=== PATIENT | male | born 2000 | race African-American/Black ===

== ENCOUNTER 2019-04-01 02:25 | Emergency (ER) | payer OTHER ==
[~2019-04-01] VITALS: Ht 180.3 cm; Wt 85.5 kg
[2019-04-01 03:29] LABS: INFLUENZA A AMPLIFICATION NEGATIVE (NEGATIVE); INFLUENZA B AMPLIFICATION NEGATIVE (NEGATIVE)
[2019-04-01] MEDS ORDERED: NS 1,000 ML IV ONE (06:00)
[2019-04-01] MEDS ORDERED: ONDANSETRON 4MG/2ML VIAL (J2405) IV ONE (06:15)
[2019-04-01] MEDS ORDERED: KETOROLAC 30 MG/ML VIAL (J1885) IV ONE (06:15)
[2019-04-01 06:30] LABS: BASO % 0.1 % (0.0-1.0); HEMATOCRIT 46.2 % (42.0-52.0); HEMOGLOBIN 15.2 g/dl (13.5-17.5); LYMPH % 2.5 % (24.0-44.0); MEAN CORPUSCULAR HEMOGLOBIN 26.2 pg (27.0-33.0); MEAN CORPUSCULAR HGB CONC 32.9 g/dl (32.0-36.5); MEAN CORPUSCULAR VOLUME 79.5 fl (80.0-96.0); MONO # 0.5 10^3/uL (0.0-0.8); MONO % 6.9 % (0.0-5.0); NEUTROPHILS % 90.4 % (36.0-66.0); PLATELET COUNT, AUTOMATED 175 10^3/uL (150-450); RED BLOOD COUNT 5.81 10^6/uL (4.30-6.10); WHITE BLOOD COUNT 7.7 10^3/uL (4.0-10.0)
[2019-04-01 06:59] LABS: LYMPH # 0.2 10^3/uL (1.5-5.0)
[2019-04-01 07:00] LABS: ALBUMIN 4.5 GM/DL (3.2-5.2); BILIRUBIN,DIRECT 0.3 MG/DL (0.0-0.2); BILIRUBIN,TOTAL 1.3 MG/DL (0.2-1.0); TOTAL PROTEIN 7.8 GM/DL (6.4-8.2)
[2019-04-01 09:11] VITALS: BP 108/69
== END 2019-04-01 09:12 | disposition home or self-care (01) ==
LOC: M ED 02:25
DX: R11.10 Vomiting, unspecified (principal); R05 Cough; F17.218 Nicotine dependence, cigarettes, with other nicotine-induced disorders
CPT/HCPCS: 80047; 80076; 81001; 83690; 85025; 87502; 96374; 96375; 99284; J1885; J2405

== ENCOUNTER 2019-04-30 13:50 | Emergency (ER) | payer OTHER ==
[~2019-04-30] VITALS: Ht 180.3 cm; Wt 86.4 kg
[2019-04-30] MEDS ORDERED: KETOROLAC TROMETHAMINE 10 MG TAB PO ONE (14:30)
[2019-04-30] MEDS ORDERED: CYCLOBENZAPRINE 5MG TABLET PO ONE (14:30)
--- NOTE | 2019-04-30 15:11 | REP ---
Right shoulder three views : There is no fracture or dislocation. Mineralization and joint spaces are normal. There are no calcifications or foreign bodies. Impression: Negative right shoulder . Electronically Signed by Fermin Hoang MD 04/30/2019 03:02 P
--- NOTE | 2019-04-30 15:11 | REP ---
Thoracic spine three views: Vertebral body heights, interspacing alignment are normal. Mineralization is normal. The pedicles are unremarkable. Impression: Negative thoracic spine. Electronically Signed by Fermin Hoang MD 04/30/2019 03:03 P
[2019-04-30] MEDS ORDERED: KETO10TAB PO (15:21)
[2019-04-30] MEDS ORDERED: CYCL5TAB PO (15:21)
[2019-04-30 15:30] VITALS: BP 128/86
== END 2019-04-30 15:31 | disposition home or self-care (01) ==
LOC: M ED 13:50
DX: S46.011A Strain of muscle(s) and tendon(s) of the rotator cuff of right shoulder, initial encounter (principal); W01.0XXA Fall on same level from slipping, tripping and stumbling without subsequent striking against object, initial encounter; Y92.9 Unspecified place or not applicable

== ENCOUNTER 2019-05-03 18:58 | Emergency (ER) | payer OTHER ==
[~2019-05-03] VITALS: Ht 180.3 cm; Wt 83.6 kg
[~2019-05-03 18:58] MED LIST: CYCL5TAB PO; KETO10TAB PO
[2019-05-03 19:37] LABS: APPEARANCE, URINE CLEAR (CLEAR); BACTERIA, URINE AUTO NEGATIVE (NEGATIVE); BILIRUBIN, URINE AUTO NEGATIVE (NEGATIVE); BLOOD, URINE BLOOD NEGATIVE (NEGATIVE); COLOR, URINE YELLOW (YELLOW); GLUCOSE, URINE (UA) AUTO NEGATIVE (NEGATIVE); KETONE, URINE AUTO NEGATIVE (NEGATIVE); LEUKOCYTE ESTERASE, URINE AUTO NEGATIVE (NEGATIVE); NITRITE, URINE AUTO NEGATIVE (NEGATIVE); PROTEIN, URINE AUTO NEGATIVE (NEGATIVE); RBC, URINE AUTO 2 /HPF (0-3); SPECIFIC GRAVITY URINE AUTO 1.016 (1.002-1.035); SQUAMOUS EPITHELIAL CELL UR AU 0 /HPF (0-6); UROBILINOGEN, URINE AUTO 0.2 mg/dL (0.0-2.0); WBC, URINE AUTO 2 /HPF (0-3)
[2019-05-03 21:11] LABS: CHLAMYDIA DNA AMPLIFICATION POSITIVE (NEGATIVE); GC DNA AMPLIFICATION NEGATIVE (NEGATIVE)
[2019-05-03] MEDS ORDERED: cefTRIAXone SOD 250 MG VIAL (J0696) IM ONE (22:15)
[2019-05-03] MEDS ORDERED: AZITHROMYCIN 250 MG TAB PO ONE (22:15)
[2019-05-03] MEDS ORDERED: LIDOCAINE 1% SDV 5 ML VIAL DILUENT ONE (22:15)
[2019-05-03 22:32] VITALS: BP 130/74
== END 2019-05-03 22:34 | disposition home or self-care (01) ==
LOC: M ED 18:58
DX: A74.9 Chlamydial infection, unspecified (principal)
CPT/HCPCS: 81001; 87491; 87591; 96372; 99283; J0696

== ENCOUNTER 2019-12-06 19:43 | Emergency (ER) | payer OTHER ==
[~2019-12-06] VITALS: Ht 180.3 cm; Wt 97.7 kg
[2019-12-06] MEDS ORDERED: AZITHROMYCIN 250MG TABLET PO ONE (21:45)
[2019-12-06] MEDS ORDERED: LIDOCAINE 1% SDV 5ML VIAL DILUENT ONE (21:45)
[2019-12-06] MEDS ORDERED: cefTRIAXone SOD 250MG VIAL (J0696 PER 250MG) IM ONE (21:45)
[2019-12-06 22:04] VITALS: BP 145/79
== END 2019-12-06 22:07 | disposition home or self-care (01) ==
LOC: M ED 19:43
DX: Z20.2 Contact with and (suspected) exposure to infections with a predominantly sexual mode of transmission (principal); R36.9 Urethral discharge, unspecified
CPT/HCPCS: 36415; 81001; 87490; 87590; 96372; 99284; J0696

== ENCOUNTER 2020-09-03 19:47 | Emergency (ER) | payer OTHER ==
[~2020-09-03] VITALS: Ht 180.3 cm; Wt 91.8 kg
[2020-09-03] MEDS ORDERED: ONDANSETRON 4MG/2ML VIAL IV ONE (20:50)
[2020-09-03] MEDS ORDERED: KETOROLAC 30 MG/ML 1ML VIAL IV ONE (20:50)
[2020-09-03] MEDS ORDERED: NS 1,000 ML IV ONE (20:50)
[2020-09-03 21:16] LABS: BASO % 0.2 % (0.0-1.0); EOS % 0.5 % (0.0-3.0); HEMATOCRIT 41.8 % (42.0-52.0); HEMOGLOBIN 13.9 g/dl (13.5-17.5); LYMPH # 0.7 10^3/uL (1.5-5.0); LYMPH % 8.7 % (24.0-44.0); MEAN CORPUSCULAR HGB CONC 33.3 g/dl (32.0-36.5); MONO # 0.7 10^3/uL (0.0-0.8); MONO % 7.9 % (2.0-8.0); NEUTROPHILS % 82.5 % (36.0-66.0); PLATELET COUNT, AUTOMATED 200 10^3/uL (150-450); RED BLOOD COUNT 5.57 10^6/uL (4.30-6.10); WHITE BLOOD COUNT 8.5 10^3/uL (4.0-10.0)
[2020-09-03 21:37] LABS: BLOOD UREA NITROGEN 11 MG/DL (7-18); CALCIUM LEVEL 9.5 MG/DL (8.5-10.1); CARBON DIOXIDE LEVEL 26 MEQ/L (21-32); CHLORIDE LEVEL 109 MEQ/L (98-107); CREATININE FOR GFR 1.23 MG/DL (0.70-1.30); GLOMERULAR FILTRATION RATE > 60.0 (>60); GLUCOSE, FASTING 96 MG/DL (70-100); POTASSIUM SERUM 3.8 MEQ/L (3.5-5.1); SODIUM LEVEL 144 MEQ/L (136-145)
[2020-09-03] MEDS ORDERED: ONDA4TAB6 PO (23:13)
[2020-09-03 23:18] VITALS: BP 134/64
== END 2020-09-03 23:26 | disposition home or self-care (01) ==
LOC: M ED 19:47
DX: K52.9 Noninfective gastroenteritis and colitis, unspecified (principal)
CPT/HCPCS: 80048; 85025; 96361; 96374; 96375; 99284; J1885; J2405

== ENCOUNTER 2020-12-06 13:33 | Emergency (ER) | payer OTHER ==
[~2020-12-06] VITALS: Ht 180.3 cm; Wt 96.1 kg
[~2020-12-06 13:33] MED LIST changes: +ONDA4TAB6 PO
[2020-12-06] MEDS ORDERED: LIDOCAINE 5% (LIDODERM) PATCH TD ONE (16:30)
[2020-12-06] MEDS ORDERED: IBUPROFEN 800 MG TAB PO ONE (16:30)
[2020-12-06] MEDS ORDERED: LIDO5DIS41 TOP (16:32)
[2020-12-06] MEDS ORDERED: IBUP80TA PO (16:32)
[2020-12-06 17:00] VITALS: BP 123/63
[2020-12-06] MEDS ORDERED: **NOTE PATIENT COMMENT** MISC XX SCH (21:00)
== END 2020-12-06 17:01 | disposition home or self-care (01) ==
LOC: M ED 13:33
DX: S39.012A Strain of muscle, fascia and tendon of lower back, initial encounter (principal); X50.0XXA Overexertion from strenuous movement or load, initial encounter; Y92.9 Unspecified place or not applicable; Y93.B3 Activity, free weights; Y99.9 Unspecified external cause status; Z86.16 Personal history of COVID-19; F41.9 Anxiety disorder, unspecified; F32.9 Major depressive disorder, single episode, unspecified